=== PATIENT | male | born 1995 | race Caucasian/White ===

== ENCOUNTER 2016-11-01 14:15 | Emergency (ER) | payer BC, OTHER ==
[~2016-11-01] VITALS: Ht 170.2 cm; Wt 81.6 kg
[2016-11-01 14:37] VITALS: BP 140/88
--- NOTE | 2016-11-01 14:49 | NUR ---
Patient ambulated to bed 08.
[2016-11-01] MEDS ORDERED: DEXAMETHASONE 10 MG/ML VIAL IM ONE (14:50)
--- NOTE | 2016-11-01 15:13 | NUR ---
PATIENT PRESENTS TO ED DUE TO SORE THROAT AND SWOLLEN TONSILS AND ON AND OFF COUGHING X 1 WEEK . DENIES N/V/D; SKIN IS PINK/WARM/DRY; AAOX4 WITH EVEN AND STEADY GAIT; LUNGS CLEAR BL; HR EVEN AND REGULAR; PT DENIES ANY FEVER, CP, SOB; PATIENT STATES PAIN OF 4/10 AT THIS TIME ON THROAT; PATIENT POSITIONED FOR COMFORT; HOB ELEVATED; BEDRAILS UP X2; BED DOWN.
[2016-11-01] MEDS ORDERED: DEXAMETHASONE 4 MG/ML VIAL IVP ONE (15:20)
--- NOTE | 2016-11-01 15:30 | NUR ---
PT AAO TALKING TO FAMILY, NO DISTRESS NOTED.
--- NOTE | 2016-11-01 15:56 | NUR ---
Patient going to CT via wheelchair per tech
--- NOTE | 2016-11-01 16:01 | NUR ---
WENT TO CT VIA WHEELCHAIR PT AAO.
--- NOTE | 2016-11-01 16:10 | NUR ---
Patient back from CT via wheelchair per tech.
--- NOTE | 2016-11-01 17:11 | NUR ---
[facility]
--- NOTE | 2016-11-01 17:19 | NUR ---
PT SISTER PREFER TO TRANSFER PT BY PRIVATE CAR, IV REMOVED, PT AAO, 12/17, DR. ARITA AWARE, PER MD ITS OK, CALL PLACE TO [facility] DONE BY [employer] TO INFORM PT COMING BY PRIVATE CAR.
--- NOTE | 2016-11-01 17:25 | NUR ---
Patient discharged with v/s stable TO GO TO [facility] ER. Written and verbal after care instructions given and explained AND INSTRUCTED TO GIVE PAPER WORKS TO ER UNDER THE SERVICE OF DR. CARDOZO FOR TONSILLAR ABSCESS Patient AND SISTER verbalized understanding. Ambulatory with steady gait. All questions addressed prior to discharge.
[2016-11-01 17:26] VITALS: BP 131/82
== END 2016-11-01 17:25 | disposition short-term general hospital (02) ==
LOC: MED 14:15
DX: J36 Peritonsillar abscess (principal)
CPT/HCPCS: 36415; 70491; 80048; 96374; 99285; J1100; Q9967